=== PATIENT | male | born 1970 | race Caucasian/White ===

== ENCOUNTER 2021-07-22 07:58 | Day surgery (SDC) | payer OTHER, SELFPAY ==
[2021-07-15 15:42] VITALS: BMI 30.4
--- NOTE | 2021-07-18 15:34 | MHC.SHP ---
Pre-Procedural Eval Section A Date of Service: 07/18/21 The patient is an INPATIENT: No Changes since office visit: No Cold of Flu in the past 2 weeks, No New Medical Problems, No Changes in Medication and No Patient answered all questions The History & Physical has been completed within 30 days and I have reviewed it.: Yes Section B Chief Complaint: pterygium of left eye Allergies: Allergies Allergy/AdvReac Type Severity Reaction Status Date / Time No Known Allergies Allergy Unverified 01/05/20 17:22 Plan Diagnosis/Plan: Unchanged I have reviewed the history and physical and performed a pertinent physical examination on my patient. No changes have occurred unless specified.
--- NOTE | 2021-07-19 10:41 | HO.ANESPROP2 ---
Documented by User: Mariama Pino NP 07/19/21 10:42 HPI - Anesthesia Eval Consult details Narrative: 51yo M for Left PTERYGIUM EXCISION [facility] Past Medical History Medical History (Updated 07/15/21 @ 15:41 by Marium Cheek RN) COVID-19 vaccine series completed Diabetes Surgical History Surgical History (Updated 07/15/21 @ 15:29 by Marium Cheek RN) History of pterygium excision Social History Social History Patient Tobacco Use Status: Never used Tobacco Use of substances other than those prescribed or required for medical reasons: No Have you been hit, kicked, punched, or otherwise hurt by someone within the past year? If so, by whom?: No Are you DNR?: No Advance Directives: No Advance Directives Information Provided: Yes (brochure mailed) Advance Directives on File: No Recently lost weight without trying: No Eating poorly because of decreased appetite: No Nutrition Risks: No Nutritional Risk Poor oral hygiene: No Meds Allergies Allergy/AdvReac Type Severity Reaction Status Date / Time No Known Allergies Allergy Verified 07/22/21 08:35 Home Medications Medication Instructions Recorded Confirmed Last Taken Type metformin 500 mg tablet 1 tab PO BID 07/15/21 07/15/21 Unknown History Exam Exam Date and Time: July 19, 2021 1041 Height,Weight and Vital Signs: Height 5 ft 11 in Weight 98.883 kg Assessment and Plan Assessment Anesthesia Assessment: Chart Reviewed Documented by User: Orville Salas MD 07/22/21 09:02 [facility] Past Medical History Medical History (Updated 07/15/21 @ 15:41 by Marium Cheek RN) COVID-19 vaccine series completed Diabetes Family History Family history of problems with anesthesia: No Surgical History Surgical History (Updated 07/15/21 @ 15:29 by Marium Cheek RN) History of pterygium excision History of Problems with Anesthesia: No Social History Social History Patient Tobacco Use Status: Never used Tobacco Use of substances other than those prescribed or required for medical reasons: No Have you been hit, kicked, punched, or otherwise hurt by someone within the past year? If so, by whom?: No Are you DNR?: No Advance Directives: No Advance Directives Information Provided: Yes (brochure mailed) Advance Directives on File: No Recently lost weight without trying: No Eating poorly because of decreased appetite: No Nutrition Risks: No Nutritional Risk Poor oral hygiene: No Meds Allergies Allergy/AdvReac Type Severity Reaction Status Date / Time No Known Allergies Allergy Verified 07/22/21 08:35 Home Medications Medication Instructions Recorded Confirmed Last Taken Type metformin 500 mg tablet 1 tab PO BID 07/15/21 07/15/21 Unknown History Exam Airway Mallampati Class: II TM Dist: >3cm Neck ROM: Full Loose/Missing/Broken Teeth: No Heart: [id number] Lungs: CTA B/L Assessment and Plan Assessment Anesthesia Assessment: Anesthesia Plan Discussed Final Anesthetic Review Family History of Problems with Anesthesia: No History of Problems with Anesthesia: No NPO: Yes ASA Class: II Final Preanesthetic Review: No Changes in Pt Med Stat, Meds/Allgs Chart Reviewed, Consent Obtained/Reviewed and Anes Risks/Benef Reviewed Patient Risk: Intermediate Procedure Risk: Low Assessment/Block/Sedation in SS: Assess/Block/Sedation-SS Anesthetic Plan Anesthetic Plan: MAC: and Agree w/ Assess. and Plan Disposition: Standard PACU
[2021-07-22 08:48] VITALS: BP 141/76; PULSE 67; RESP 17; TEMP 36.6; O2SAT 98
[2021-07-22 08:58] LABS: Glucose, Whole Blood 102 mg/dL (60-115)
[2021-07-22] MEDS: Lactated Ringers 500 ML 50 ML IV (09:10)
--- NOTE | 2021-07-22 10:14 | P.PCNO_ITS ---
Ophthalmology Procedure Procedure Date of Service: 07/22/21 Ophthalmology Viscoelastic: Not Applicable Ophthalmology Lenses: Not Applicable Procedure Notes: PREOPERATIVE DIAGNOSIS: Pterygium left eye POSTOPERATIVE DIAGNOSIS: Same PROCEDURE: Pterygium resection with conjunctival graph left eye SURGEON: Brendan Nieves M.D. ANESTHESIA: Topical/MAC ESTIMATED BLOOD LOSS: None COMPLICATIONS: None After obtaining informed consent, the patient was brought to the operating room suite and placed in supine position. After adequate sedation per Anesthesia, topical drops of Tetracaine were given to the left eye. The eye was then prepped and draped in the usual sterile fashion. Attention was directed to the left eye where a lid speculum was placed. Tetracaine was instilled topically, followed by subconjunctival injections of Lidocaine below the pterygium and below the ca perior conjunctiva where the graft was to be harvested from. Utilizing a combination of sharp and blunt dissection with Julieta scissors, the pterygium was resected from the cornea, as well as the bulbar conjunctiva. A graft was then harvested from the superior site and placed in the conjunctival bed. It was sutured in place with 7-0 Vicryl sutures in a running fashion. Attention was directed superiorly where the graft harvest site was closed with additional 7-0 Vicryl interrupted sutures. Antibiotic ointment was instilled into the cul de sac. The lid speculum was removed. The patient tolerated the procedure well and will be followed up.
[2021-07-22 11:15] VITALS: BP 133/77; PULSE 59; RESP 16; TEMP 36.4; O2SAT 98
== END 2021-07-22 11:32 | disposition home or self-care (01) ==
PROVIDERS: PCP Internal Medicine; Visit Provider Ophthalmology
PROC: (CPT 65426; principal; 2021-07-22 10:30)
DX: H11.002 Unspecified pterygium of left eye (principal); E11.9 Type 2 diabetes mellitus without complications; Z79.84 Long term (current) use of oral hypoglycemic drugs; M17.10 Unilateral primary osteoarthritis, unspecified knee
CPT/HCPCS: 65426; 82947; 88304; J2250; J3010

== ENCOUNTER 2025-04-14 16:03 | Outpatient (AMB) | payer OTHER, SELFPAY ==
--- OUTSIDE RECORDS SUMMARY | 2025-04-08 20:05 | XMS_ITS | Continuity of Care Document ---
Author Organization [facility] ter Address [address] [place] [id number]- Care Team Providers Care Retail Greeting Card Merchandiser Name Role Phone Truong HERCULES MD, Eddie Pittman Primary Care Physician Encounter [facility] Date(s): 04/08/25 - 04/08/[address] [address]- Encounter Diagnosis Head contusion(Final) - 04/08/25 Discharge Disposition: A-D/C Home Attending Physician: Edgar Mendieta MD Admitting Physician: Edgar Mendieta MD Referring Physician: Not on Staff, Referring MD Encounter Type: Disch ES Allergies, Adverse Reactions, Alerts No Known Medication Allergies Vital Signs Most recent to oldest [Reference Range]: 1 Oxygen Saturation [94-100 %] 98 % (04/08/25 6:37 PM) Pulse Rate [55-90 bpm] 72 bpm (04/08/25 6:37 PM) Blood Pressure [90-138/55-84 mm Hg] 132/ 87mm Hg (04/08/25 6:37 PM) Respiratory Rate [16-30 br/min] 16 br/mi n (04/08/25 6:37 PM) Temperature [96.8-100.4 DegF] 98.4 DegF (04/08/25 6:37 PM) Mode of Delivery (Oxygen) Room air (04/08/25 6:37 PM) Temperature Route Oral (04/08/25 6:37 PM) Dry Weight 101 kg (04/08/25 6:37 PM) Dry Weight Obtained Via Patient/family s tated (04/08/25 6:37 PM) Social History Social History Type Response Sex Sex Representation Male (finding) Note * Keely Carrillo: PERFORM Event Display: Patient Education Leaflets Authored Date: [id number] Scalp Bruise ?? [id number] Hematoma en el cuero cabelludo Un hematoma (contusi??n) se produce cuando los vasos sangu??neos luisito??os se abren y pierden dejan en la dima cercana. Un hematoma en el cuero cabelludo puede ser el resultado de un bulto, un golpeo randell ca??da. Los reci??n nacidos pueden tener un hematoma en el cuero cabelludo desde el nacimiento proceso. Los s??ntomas pueden incluir cambios en el color de la piel. Por ejemplo, la piel puede volverse flako o yvrose. Tambi??n pueden producirse hinchaz??n y dolor. La hinchaz??n deber??a bajar en unos cuantos d??as. Los hematomas y el dolor pueden tardar m??s en desaparecer. Cuidados en el hogar Cuidados generales ??? Puede usar paracetamol para controlar el dolor, a menos que se prescribiera otro analg??sico. No tome ??cido acetilsalic??jason o MELISSA (antiinflamatorios no esteroideos nani el paracetamol o ibuprofeno) o anticoagulantes (anticoagulantes) nani warfarina sin hablar con ca m??dico saul. Estos pueden aumentar el riesgo de hemorragia. ??? Para ayudar a reducir la hinchaz??n ydolor, aplique radnell compresa fr??a en la dima lesionada fawad un m??ximo de 20 minutos cada vez. H??shashank con la frecuencia que se le indique. Para hacer randell bolsa fr??a, coloque hielo en randell bolsa pl??stica que se sella en la parte superior. Envuelva la bolsa en randell toalla o un trapo branden antes deusarla. Nunca aplique randell compresa fr??a ni hielo directamente sobre la piel. ??? Si tiene mcnair oraspa alrededor del lugar del hematoma, cu??delos seg??n las indicaciones. ?? Nota sobre la conmoci??n cerebral Porque la lesi??n se produjo en ca Oliverio, es posible que sufra randell lesi??n cerebral leve (conmoci??n cerebral). S??ntomas de un La conmoci??n cerebral puede aparecer m??s tarde. Por julito motivo, est?? alerta a los s??ntomas de conmoci??n cerebral randell vez est?? en casa. Solicite atenci??n m??dica de urgencia si tiene alguno de los s??ntomas que se indican a continuaci??n fawad el horas o d??as siguientes: ??? dolor de oliverio; ??? Malestar estomacal (n??useas) o v??mitos ??? Mareos ??? Sensibilidad a la deni o ruido ??? Somnolencia inusual o aturdimiento ??? Dificultad para conciliar el fatou??o ??? Cambios de personalidad ??? Cambios en la visi??n ??? P??rdida de memoria ??? confusi??n; ??? Dificultad para caminar o torpeza ??? P??rdida de la conciencia (incluso fawad un breve periodo de tiempo) ??? Dificultad para despertarse Fawad el periodo de tiempo que est?? vigilar los s??ntomas de conmoci??n cerebral: ??? No beulah alcohol ni lo use sedantes o medicamentos que le annette dormir. ??? No conduzca ni maneje m??quinas. ??? No anders nada extenuante, nani levantar peso o hacer fuerza. ??? Limitar las tareas que necesitan concentraci??n. [place] incluye leer, blaire la televisi??n, usar un tel??fono inteligente uordenador, y jugando a videojuegos. ??? No vuelva a practicar deportes, ejercicio u otra actividad que pueda provocar otra lesi??n. Preg??ntele al m??dico cu??ndo puede reanudar estas actividades con seguridad. ?? Atenci??n de seguimiento Seguimiento con ca atenci??n sanitaria o seg??n las indicaciones. Si se realizaron pruebas de imagen, las revisar?? un profesional sanitario. Se le informar?? de los resultados y de cualquier hallazgo nuevo que pueda afectar a ca atenci??n. ?? Cu??ndo consultar al m??dico Llamar a ca profesional sanitario de inmediato si tiene: ??? Dolor que empeora o que no se puede aliviar con medicamentos. ??? Hinchaz??n nueva o aumentada o hematomas. ??? Fiebre de 38 ??C (100,4 ??F) o m??s alto, o seg??n le indique ca profesional sanitario. ??? Enrojecimiento, calor o drenaje paul dima lesionada. ??? Cualquier depresi??n u hueso anomal??a en la dima lesionada. ??? P??rdida de l??quido o hemorragia de la nariz o de las orejas. ?? Llamar 911 Llamar 911 si tiene: ??? Bishnu r??gido. ??? Debilidad o entumecimiento en cualquier parte del cuerpo. ??? convulsiones. ??? Dificultad para mantenerse despierto o confusi??n. ?? Last Reviewed Date: 2024 00:00:00 ?? [id number] [employer] Todos los derechos reservados. Esta informaci??n no pretende sustituir la atenci??n m??dica profesional. S??lo ca m??dico puede diagnosticar y tratar un problema de bozena. ?? Patient Care team information Care Team Personnel Name: Truong HERCULES MD, Eddie Pittman Position: Reference Physician Member Role: PCP [address]: [address] [place] [address] Telecom: Insurance Providers Guarantor name: [employer] Health Plan Information #: 1 Payer: [employer] Payer Identifier: [employer] Member Number: [id number] Group Number: [id number] Subscriber Identifier: [id number] Relationship to Subscriber: self Coverage Type: Auto Insurance (includes no fault) Coverage Verification Date: Telecom: Address: Health Plan Information #: 2 Payer: [employer] FF NON BHP HMO P Payer Identifier: Member Number: [id number] Group Number: [id number] Subscriber Identifier: [id number] Relationship to Subscriber: self Coverage Type: Other Private Insurance Coverage Verification Date: Telecom: Address:
--- OUTSIDE RECORDS SUMMARY | 2025-04-14 16:08 | XMS_ITS ---
Author Name [facility] Organization Unknown Care Team Organization Name Specialty Phone Email Start Date End Da te [facility] JAZMINE DASIA Primary Care 02/25/2022 4
--- OUTSIDE RECORDS SUMMARY | 2025-04-14 16:08 | XMS_ITS | Clinical Summary ---
Author Organization [facility] [address] [place] [address] [place] [phone] Phone Care Team Providers Care Machinery Mechanic Name Role Phone Eddie Guerin MD Primary Care Provider [phone] Allergies No known active allergies Medications tamsulosin (FLOMAX) 0.4 mg 24 hr capsule Take 1 Capsule by mouth daily. Take 30 mins after same meal every day. 4 Active lancets (OneTouch Delica Plus Lancet) 33 gauge 1 Strip by Does not apply route 2 times daily. 4 Active hydrocortisone (ANUSOL-HC) 2.5 % rectal cream Apply 1 g topically 4 times daily. 3 Active fluticasone propionate (FLONASE) 50 mcg/actuation nasal spray 1 [place] by Each Nare route daily for 360 days. 3 Active blood-glucose meter [facility] Use daily or as directed for monitoring of diabetes. 1 each 5 11/09/19 26 Active ketoconazole (NIZORAL) 2 % cream Apply topically 2 (two) times a day. 30 g 2 5 01/28/20 26 Active atorvastatin (LIPITOR) 10 mg tablet Take 1 tablet (10 mg total) by mouth at bedtime. 90 tablet 1 5 Active glipiZIDE (GLUCOTROL XL) 10 mg 24 hr tablet TAKE 1 TABLET BY MOUTH EVERY DAY DO NOT CRUSH, CHEW, OR SPLIT 90 tablet 1 5 Active Active Problems Problem Noted Date Diagnosed Date Hepatic steatosis 06/10/2023 Diabetes mellitus type 2, uncomplicated 10/26/19 19 Benign non-nodular prostatic hyperplasia with lower urinary tract symptoms 05/17/2015 Pterygium 05/17/2015 Knee osteoarthritis 09/29/2013 Immunizations Immunization Administration Dates Next Due Influenza Quadravalent, MDCK , 0.5ml, preservative free (Flucelvax) 6mo and older 03/03/2023,03/01/2019 Influenza trivalent, MDCK, 0 .5mL, preservative free (Flucelvax) 6mo and older 03/04/2024 Pneumococcal conjugate 20 va lent (Prevnar 20, PCV 20) 2mo and older 03/03/2023 Td Tetanus diptheria (Tdvax) 7yo and older 03/04 Tdap Tetanus diptheria acell ular pertussis (Boostrix; Adacel) 7yo and older 04/25/2013 Surgical History Surgery Date Site/Laterality Comments EYE SURGERY PROCEDURE: HISTORICAL EYE SURGERY; COMMENT: cornea repair Medical History Medical History Date Comments Controlled type 2 diabetes m ellitus without complication ([facility] V24, [facility] V28) DX:Controlled type 2 diabete s mellitus without complication ([facility]) Family History Medical History Relation Name Comments Heart attack Brother Diabetes Father Relation Name Status Comments Brother Father Social History Tobacco Use Types Packs/Day Years Used Date Smoking Tobacco: Never Smokeless Tobacco: Never Tobacco Cessation:Counseling Given: Not Answered Alcohol Use Standard Drinks/Week Comments No 0 (1 standard drink = 0.6 oz pur e alcohol) Food Access & Nutrition Answer Date Rec orded Do you have access to a vari ety of food including fruits and vegetables? Yes 11/01/2024 Access to Healthcare Answer Date Record ed Within the last 3 months, ho w many times did you visit the emergency department for your medical care? 0 11/01/2024 Sex and Gender Information Value Date Recorded Sex Assigned at Male 04/29/2023 8:32 PM EST Legal Sex Male 12:48 AM EST Gender Identity Male 04/29/2023 8:32 PM EST Sexual Orientation Not on file Last Filed Vital Signs Vital Sign Reading Time Taken Comments Blood Pressure 114/62 11/08/2024 4:10 PM EDT Pulse 69 11/08/2024 4:10 PM EDT Temperature 35.9 C (96.7 F) 11/08/2024 4:10 PM EDT Respiratory Rate 14 11/08/2024 4:10 PM EDT Oxygen Saturation 98% 11/08/2024 4:10 PM EDT Inhaled Oxygen Concentration - - Weight 105 kg (230 lb 11.2 oz) 11/08/2024 4:10 P M EDT Height 180.3 cm (5' 11 ) 11/08/2024 4:10 PM EDT Body Mass Index 32.18 11/08/2024 4:10 PM EDT Plan of Treatment Health Maintenance Due Date Last Done Comments Diabetes: Annual Foot Exam 1981 Diabetes: Annual Retina Eye Exam 1981 Hepatitis B Vaccines (1 of 3 - 19+ 3-dose series) 1990 Zoster Vaccines (1 of 2) 2021 COVID-19 Vaccine (2024- season) 2024 08/28/2020, 07/31/2020 Influenza Vaccine (#1) 2024 , 03/03/2023, 03/01/2019 Diabetes: Annual Urine Albumin-Creatinine Ratio (uACR) 03/04/2025 03/04/2024, 09/02/2023 Diabetes: Blood Sugar Control Test (HGBA1C) 05/11/2025 11/08/2024, 07/05/2024, 03/04/2024, Additional history exists Diabetes: Annual GFR (Glomerular Filtration Rate) 07/05/2025 07/05/2024, 03/04/2024, 09/02/2023, Additional history exists Social Influencers of Health Screening 11/01/2025 11/01/2024 Cholesterol Screening (Lipid Panel) 07/05/2029 07/05/2024, 03/04/2024, 09/02/2023, Additional history exists Colorectal Cancer Screening: Colonoscopy 06/08/2033 06/08/2023 DTaP,Tdap,and Td Vaccines (3 - Td or Tdap) 03/04/2034 03/04/2024, 04/25/2013 RSV Immunization Adult Patients (1 - 1-dose 75+ series) 2046 HIV Screening Completed 05/22/2021 Hepatitis C Screening Completed 03/03/2023 Pneumococcal Vaccine: 50+ Years Completed 03/03/2023 Depression Screening Completed 06/28/2024 HIB Vaccines Aged Out No longer eligi ble based on patient's age to complete this topic HPV Vaccines Aged Out No longer eligi ble based on patient's age to complete this topic Hepatitis A Vaccines Aged Out No long er eligible based on patient's age to complete this topic IPV Vaccines Aged Out No longer eligi ble based on patient's age to complete this topic MMR Vaccines Aged Out No longer eligi ble based on patient's age to complete this topic Meningococcal ACWY Vaccine Aged Out N o longer eligible based on patient's age to complete this topic Meningococcal B Vaccine Aged Out No l onger eligible based on patient's age to complete this topic RSV Immunization Patients Under 20 months Aged Out No longer eligible based on patient's age to complete this topic Varicella Vaccines Aged Out No longer eligible based on patient's age to complete this topic Procedures Procedure Name Priority Date/Time Associated Diagnosis Comments HEMOGLOBIN A1C Routine 11/08/2024 4:47 PM EDT Type 2 diabetes mellitus without complication, without long-term current use of insulin (CMS/HCC V24, CMS/HCC V28) COMPREHENSIVE METABOLIC PANEL Routine 07/05/2024 4:11 PM EDT Type 2 diabetes mellitus without complication, without long-term current use of insulin (CMS/HCC V24, CMS/HCC V28) LIPID PANEL WITH REFLEX TO DIRECT LDL Routine 07/05/2024 4:11 PM EDT Hypercholesterolem ia MICROALBUMIN CREATININE URINE RATIO Routine 03/04/2024 4:32 PM EST Type 2 diabetes mellitus without complication, without long-term current use of insulin (CMS/HCC V24, CMS/HCC V28) COLONOSCOPY Routine 06/08/2023 HEPATITIS C SCREENING Routine 03/03/2023 HIV SCREENING Routine 05/22/2021 from Last 3 Months or Most Recently Relevant to Health Maintenance Results * (ABNORMAL) Hemoglobin A1c (11/08/2024 4:47 PM EDT) Pathologist [facility] Hemoglobin A1C 8.1(H) <6.5 % LAB CHEMISTRY METHOD 11/08/2024 8:48 PM EDT [facility] Mean Bld Glu Estim. 186 mg/dL LAB CHEMISTRY METHOD 11/08/2024 8:48 PM EDT [facility] Blood Venous blood specimen / Unknown Venipuncture / Unknown 11/08/2024 4:47 PM EDT 11/08/2024 4:47 PM EDT Nuzhat JEFFERY LAB BLOOD ORDERABLES Fi nal Result [facility] [address] [place] [address], [place] [phone] * (ABNORMAL) Lipid panel with reflex to direct LDL (07/05/2024 4:11 PM EDT) [facility] Cholesterol 164 0 - 200 mg/dL LAB CHEMISTRY METHOD 07/05/2024 6:44 PM EDT [facility] Triglycerides 187(H) 0 - 150 mg/dL LAB CHEMISTRY METHOD 07/05/2024 6:44 PM EDT [facility] HDL 33(L) >=40 mg/dL LAB CHEMISTRY METHOD 07/05/2024 6:44 PM EDT [facility] LDL Calculated 94 0 - 100 mg/dL LAB CHEMISTRY METHOD 07/05/2024 6:44 PM EDT [facility] VLDL Cholesterol Silvestre 37.4 mg/dL LAB CHEMISTRY METHOD 07/05/2024 6:44 PM EDT [facility] Non HDL Chol. (LDL+VLDL) 131 <145 mg/dL LAB CHEMISTRY METHOD 07/05/2024 6:44 PM EDT [facility] Chol/HDL Ratio 5.0(H) 0.0 - 4.4 LAB CHEMISTRY METHOD 07/05/2024 6:44 PM T [facility] Blood Venous blood specimen / Unknown Venipuncture / Unknown 07/05/2024 4:11 PM EDT 07/05/2024 4:11 PM EDT Nuzhat JEFFERY LAB BLOOD ORDERABLES Fi nal Result [facility] [address] [place] [address], * (ABNORMAL) Comprehensive metabolic panel (07/05/2024 4:11 PM EDT) Sodium 137 133 - 145 mmol/L LAB CHEMISTRY METHOD 07/05/2024 6:44 PM [facility] Potassium 3.7 3.5 - 5.5 mmol/L LAB CHEMISTRY METHOD 07/05/2024 6:44 PM [facility] Chloride 105 96 - 110 mmol/L LAB CHEMISTRY METHOD 07/05/2024 6:44 PM [facility] CO2 24 21 - 32 mmol/L LAB CHEMISTRY METHOD 07/05/2024 6:44 PM [facility] Anion Gap 8 3 - 11 LAB CHEMISTRY METHOD 07/05/2024 6:44 PM [facility] Glucose 193(H) 70 - 100 mg/dL LAB CHEMISTRY METHOD 07/05/2024 6:44 PM [facility] BUN 15 5 - 25 mg/dL LAB CHEMISTRY METHOD 07/05/2024 6:44 PM [facility] Creatinine 1.12 0.70 - 1.30 mg/dL LAB CHEMISTRY METHOD 07/05/2024 6:44 PM [facility] eGFR 79 >=60 mL/min/1. 73m2 LAB CHEMISTRY METHOD 07/05/2024 6:44 PM [facility] Comment:Calculation based on the Chronic Kidney Disease Epidemiology Collaboration (CKD-EPI) equation refit without adjustment for race. BUN/Creatinine Ratio 13.4 LAB CHEMISTRY METHOD 07/05/2024 6:44 PM EDT [facility] Calcium 9.4 8.5 - 10.5 mg/dL LAB CHEMISTRY METHOD 07/05/2024 6:44 PM EDT [facility] AST (SGOT) 24 10 - 42 unit/L LAB CHEMISTRY METHOD 07/05/2024 6:44 PM EDT [facility] ALT (SGPT) 44 10 - 60 unit/L LAB CHEMISTRY METHOD 07/05/2024 6:44 PM EDT [facility] Alkaline Phosphatase 108 42 - 121 unit/L LAB CHEMISTRY METHOD 07/05/2024 6:44 PM EDT [facility] Total Protein 7.3 6.0 - 8.0 g/dL LAB CHEMISTRY METHOD 07/05/2024 6:44 PM EDT [facility] Albumin 4.3 3.2 - 5.0 g/dL LAB CHEMISTRY METHOD 07/05/2024 6:44 PM EDT [facility] Total Bilirubin 0.8 0.0 - 1.4 mg/dL LAB CHEMISTRY METHOD 07/05/2024 6:44 PM EDT [facility] Blood Venous blood specimen / Unknown Venipuncture / Unknown 07/05/2024 4:11 PM EDT 07/05/2024 4:11 PM EDT us Nuzhat JEFFERY LAB BLOOD ORDERABLES Fi nal Result [facility] [address] [place] [address], * Microalbumin creatinine urine ratio (03/04/2024 4:32 PM EST) Creatinine, Urine 132.0 mg/dL LAB CHEMISTRY METHOD 03/04/2024 7:32 PM EST [facility] Microalb, Ur 13.7 0.0 - 29.0 mg/L LAB CHEMISTRY METHOD 03/04/2024 7:32 PM EST [facility] Microalb/Creat Ratio 10 <30 mg/g creat LAB CHEMISTRY METHOD 03/04/2024 7:32 PM EST [facility] Urine Urine specimen obtained by clean catch procedure / Unknown Non-blood Collection / Unknown 03/04/2024 4:32 PM EST 03/04/2024 4:32 PM EST Eddie Guerin MD LAB URINE ORDERABLES Final Resu lt [facility] [address] [place] [address], * Colonoscopy (06/08/2023) Colonoscopy Abstracted, No interpretation Anatomical Region Laterality Modality Other Historical Provider HEALTH MAINTENANCE Final Result * Hepatitis C Screening (03/03/2023) Hepatitis C Screening Abstracted [facility] Provider HEALTH MAINTENANCE Final Result * HIV Screening (05/22/2021) Pathologist [facility] HIV Screening Abstracted [facility] Provider HEALTH MAINTENANCE Final Result from Last 3 Months or Most Recently Relevant to Health Maintenance Insurance [facility] Care Teams Machinery Mechanic Relationship Specialty Start Date End Date Eddie Guerin MD [address] [place] [phone] PCP - General 08/30/10
--- OUTSIDE RECORDS SUMMARY | 2025-04-14 16:08 | XMS_ITS | Clinical Summary ---
Author Organization [facility] Address [address] [facility] [address] [place] [phone] Phone Care Team Providers Care Matcher Offbearer Name Role Phone Eddie Guerin MD Primary Care Provider + Allergies No known active allergies Medications ondansetron (ZOFRAN-ODT) 4 MG disintegrating tablet (To-Go) Take 1-2 tablet(s) by mouth every 8 hours as needed for nausea/vomi ting 6 tablet 3 Active metFORMIN (GLUCOPHAGE) 500 MG tablet Take 500 mg by mouth 2 (two) times a day with meals. 3 Active atorvastatin (LIPITOR) 10 MG tablet Take 10 mg by mouth every morning. 3 Active fluticasone propionate (FLONASE) 50 mcg/actuation nasal spray 1 spray by Nasal route daily. 3 Active tamsulosin (FLOMAX) 0.4 mg Cap Take 0.4 mg by mouth daily. 3 Active Social History Tobacco Use Types Packs/Day Years Used Date Smoking Tobacco: Never Tobacco Cessation:Counseling Given: Not Answered Alcohol Use Standard Drinks/Week Comments Never 0 (1 standard drink = 0.6 oz pur e alcohol) Education Answer Date Recorded Are you interested in more education? Not on zach e 08/16/2022 Are you concerned about learning? Not on file 08/16/2022 No 08/16/2022 No 08/16/2022 Digital Access Answer Date Recorded No 09/14/2022 No 09/14/2022 No 09/14/2022 Reliable internet access at home? Not on file 09/14/2022 Device with a working camera? Not on file Intimate Partner Violence Answer Date R ecorded Are you denied basic needs s uch as food, clothing, or medical care? No 03/31/2023 In the past 12 months have y ou been in a relationship with a person who hurts, threatens, or tries to control you? No 03/31/2023 Are you denied basic needs s uch as food, clothing, or medical care? No 03/31/2023 In the past 12 months have y ou been in a relationship with a person who hurts, threatens, or tries to control you? No 03/31/2023 Sex and Gender Information Value Date Recorded Sex Assigned at Male 05/06/2022 10:54 PM EST Legal Sex Male 10:40 PM EST Gender Identity Male 05/06/2022 10:54 PM EST Sexual Orientation Not on file Last Filed Vital Signs Vital Sign Reading Time Taken Comments Blood Pressure 144/71 04/01/2023 2:30 AM EST Pulse 75 04/01/2023 2:35 AM EST Temperature 37 C (98.6 F) 04/01/2023 12:10 AM EST Respiratory Rate 18 04/01/2023 2:35 AM EST Oxygen Saturation 96% 04/01/2023 2:35 AM EST Inhaled Oxygen Concentration - - Weight 104.3 kg (230 lb) 03/31/2023 7:29 PM EST Height 180.3 cm (5' 11 ) 03/31/2023 10:44 PM EST Body Mass Index 32.08 03/31/2023 7:29 PM EST Plan of Treatment Health Maintenance Due Date Last Done Comments Adult Td,Tdap Booster 1971 LIPID PANEL 1971 DEPRESSION SCREENING 1983 HEPATITIS C SCREENING 1989 HIV ONE-TIME SCREENING (18-6 5 YEARS) 1989 SMOKING STATUS SCREENING (On ce After 26 Yrs) 1997 COLOGUARD 02/01/2016 COLONOSCOPY 02/01/2016 COLORECTAL CANCER SCREENING 02/01/2016 FIT TEST 02/01/2016 FOBT 02/01/2016 SIGMOIDOSCOPY 02/01/2016 VIRTUAL COLONOSCOPY 02/01/2016 PNEUMOCOCCAL VACCINES (50+ years) (1 of 1 - PCV) 2021 ZOSTER VACCINES (1 of 2) 2021 CREATININE LEVEL 03/31/2024 03/31/2023, 05/07/2022 INFLUENZA VACCINE (#1) 2024 COVID-19 VACCINE (2024-2 6 season) 2024 SCREENING FOR DIABETES 03/31/2026 03/31/2023 RSV VACCINE (1 - 1-dose 75+ series) 2046 HEPATITIS A VACCINES Aged Out No long er eligible based on patient's age to complete this topic HIB VACCINES Aged Out No longer eligi ble based on patient's age to complete this topic MENINGOCOCCAL VACCINES (ACWY) Aged Out No longer eligible based on patient's age to complete this topic MENINGOCOCCAL VACCINES (B) Aged Out N o longer eligible based on patient's age to complete this topic Medical Devices Not on file Procedures Procedure Name Priority Date/Time Associated Diagnosis Comments BASIC METABOLIC PANEL (BMP) STAT 03/31/2023 11:42 PM EST from Last 3 Months or Most Recently Relevant to Health Maintenance Results * (ABNORMAL) Basic metabolic panel (03/31/2023 11:42 PM EST) SODIUM 141 133 - 146 mmol/L [facility] CHLORIDE 105 96 - 108 mmol/L [facility] POTASSIUM 4.0 3.3 - 5.1 mmol/L [facility] CO2 25 21 - 35 mmol/L [facility] BUN 16 6 - 19 mg/dL [facility] CREATININE 1.00 0.5 - 1.5 mg/dL [facility] GLUCOSE 113(H) 70 - 99 mg/dL [facility] CALCIUM 9.4 8.4 - 10.3 mg/dL [facility] EGFR 91 >59 mL/min/1.7 3m2 [facility] Comment:Estimated glomerular filtration rate calculated using the CKD-EPI refit equation. ANION GAP 15 10 - 20 mmol/L [facility] Blood 03/31/2023 11:4 2 PM EST 04/01/2023 12:21 AM EST us Lida Barger PA-C LAB BLOOD BKR ORDERABLES Fi nal Result [facility] [address] [place] [address] from Last 3 Months or Most Recently Relevant to Health Maintenance Insurance HMO O O HMO O O Care Teams Matcher Offbearer Relationship Specialty Start Date End Date Eddie Guerin MD [address] [place] [phone] PCP - General Internal Medicine 05/06/22 Additional Source Comments The information contained in this document represents components of the legal health record. It is not the complete legal health record.[facility]
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
[2025-04-14 16:16] VITALS: BP 156/89; PULSE 79; RESP 14; TEMP 36.8; O2SAT 97; BMI 33.7
== END 2025-04-14 17:22 | disposition home or self-care (01) ==
PROVIDERS: PCP Student in an Organized Health Care Education/Training Program; Visit Provider Student in an Organized Health Care Education/Training Program
DX: E11.9 Type 2 diabetes mellitus without complications (principal); M25.561 Pain in right knee; M79.602 Pain in left arm; N48.1 Balanitis; M54.2 Cervicalgia; E78.5 Hyperlipidemia, unspecified; R35.1 Nocturia